=== PATIENT | male | born 1995 | race Caucasian/White ===

== ENCOUNTER → 2019-12-05 | Outpatient (REF) | payer OTHER | LOC: M SFHCLERA 13:52 | PROVIDERS: ATTEND Nurse Practitioner Family | DX: R21 Rash and other nonspecific skin eruption (principal) ==

== ENCOUNTER 2021-05-10 01:41 | Emergency (ER) | payer OTHER ==
[2021-05-10 04:38] VITALS: BP 151/81
== END 2021-05-10 04:39 | disposition home or self-care (01) ==
LOC: M ED 01:41
DX: Z77.21 Contact with and (suspected) exposure to potentially hazardous body fluids (principal); Z88.1 Allergy status to other antibiotic agents; Z88.2 Allergy status to sulfonamides

== ENCOUNTER → 2022-11-06 | Outpatient (CLI) | payer OTHER | LOC: M WUC 13:07 | PROVIDERS: ATTEND Internal Medicine | DX: R06.83 Snoring (principal); J32.9 Chronic sinusitis, unspecified ==

== ENCOUNTER → 2022-11-14 | Outpatient (REF) | payer OTHER ==
[2022-11-14 17:06] LABS: C REACTIVE PROTEIN QUANTITATIV < 0.40 MG/DL (<1.0); TOTAL IRON BINDING CAPACITY 319 UG/DL (250-425)
[2022-11-14 17:07] LABS: IRON (FE) 74 UG/DL (65-175); PERCENT SATURATION 23.2 % (19.7-50.0)
[2022-11-14 17:08] LABS: IMMUNOGLOBULIN A 285.5 MG/DL (40-350)
[2022-11-14 17:09] LABS: FERRITIN 102.1 NG/ML (10.5-307.3)
[2022-11-14 17:13] LABS: MONO SCRN NEGATIVE (NEGATIVE)
[2022-11-14 17:21] LABS: HEPATITIS B SURFACE ANTIGEN NEGATIVE (NEGATIVE)
[2022-11-14 17:39] LABS: HEPATITIS B CORE ANTIBODY IGM NEGATIVE (NEGATIVE); HEPATITIS C VIRUS ABY INDEX 0.1 INDEX (<0.8)
== END ==
LOC: M LAB REF 16:07
PROVIDERS: ATTEND Internal Medicine
DX: R74.01 Elevation of levels of liver transaminase levels (principal)

== ENCOUNTER → 2023-01-15 | Outpatient (CLI) | payer OTHER | LOC: M RAD 07:17 | PROVIDERS: ATTEND Internal Medicine | DX: R74.01 Elevation of levels of liver transaminase levels (principal); R59.0 Localized enlarged lymph nodes; K76.0 Fatty (change of) liver, not elsewhere classified ==

== ENCOUNTER → 2023-02-25 | Outpatient (CLI) | payer OTHER ==
[~2023-02-25] MED LIST: LIDOCAINE 1% MDV 20ML VIAL As Ordered ONE
[2023-02-25 09:20] VITALS: BP 144/77
== END ==
LOC: M IRPRO 08:03
PROVIDERS: ATTEND Otolaryngology
DX: R22.1 Localized swelling, mass and lump, neck (principal)

== ENCOUNTER → 2023-03-04 | Outpatient (CLI) | payer OTHER ==
[~2023-03-04] MED LIST changes: +ISOVUE-370 76% 100ML VIAL As Ordered ONE; -LIDOCAINE 1% MDV 20ML VIAL As Ordered ONE
== END ==
LOC: M RAD 07:49
PROVIDERS: ATTEND Otolaryngology
DX: R59.0 Localized enlarged lymph nodes (principal)
CPT/HCPCS: 70491; Q9967

== ENCOUNTER 2023-12-23 08:24 | Emergency (ER) | payer OTHER ==
[~2023-12-23] VITALS: Ht 177.8 cm; Wt 89.0 kg
[2023-12-23] MEDS ORDERED: NAPR-837 PO (10:29)
[2023-12-23 10:41] VITALS: BP 132/64; TEMP 97.4; O2SAT 98
== END 2023-12-23 10:47 | disposition home or self-care (01) ==
LOC: M ED 08:24
DX: S46.012A Strain of muscle(s) and tendon(s) of the rotator cuff of left shoulder, initial encounter (principal); Z88.2 Allergy status to sulfonamides; Y92.9 Unspecified place or not applicable; Y93.89 Activity, other specified; Y99.0 Civilian activity done for income or pay; Z79.1 Long term (current) use of non-steroidal anti-inflammatories (NSAID)